=== PATIENT | male | born 1995 | race Caucasian/White ===

== ENCOUNTER 2017-03-12 22:43 | Emergency (ER) | payer OTHER ==
--- NOTE | 2017-03-12 22:55 | EDM.PDOC ---
ED HPI GENERAL MEDICAL PROBLEM - General Stated Complaint: SWOLLEN LT FACE Time Seen by Provider: 03/12/17 22:43 Source of Information: Reports: Patient, Family History Limitations: Reports: No Limitations - History of Present Illness INITIAL COMMENTS - FREE TEXT/NARRATIVE: 21 y.o.w.m came to the ed due to swelling of his left cheek for a few days with pain. Pt denied trauma, he took some motrin/tylenol without help. No F/C N/V or any other medical issues. Onset: Today Onset Date: 03/11/17 Onset Time: 08:00 Duration: Day(s):, Getting Worse Location: Reports: Face Quality: Reports: Ache, Dull, Pressure Severity: Mild Improves with: Reports: Rest Worsens with: Reports: Movement Context: Reports: Other (tooth pain/abscess) Associated Symptoms: Reports: No Other Symptoms - Related Data Allergies Allergy/AdvReac Type Severity Reaction Status Date / Time No Known Allergies Allergy Verified 03/12/17 23:13 Home Meds: Home Meds Amoxicillin/Potassium Clav [Augmentin 875-125 Tablet] 1 each PO BID #20 tablet 03/12/17 [Rx] ED ROS ENT - Review of Systems Review Of Systems: See Below Constitutional: Reports: No Symptoms HEENT: Reports: Other (swelling left cheek. ) Respiratory: Reports: No Symptoms Cardiovascular: Reports: No Symptoms Endocrine: Reports: No Symptoms GI/Abdominal: Reports: No Symptoms : Reports: No Symptoms Musculoskeletal: Reports: No Symptoms Skin: Reports: No Symptoms Neurological: Reports: No Symptoms Psychiatric: Reports: No Symptoms Hematologic/Lymphatic: Reports: No Symptoms Immunologic: Reports: No Symptoms ED EXAM, ENT - Physical Exam Exam: See Below Exam Limited By: No Limitations General Appearance: Alert, WD/WN, Mild Distress Eye Exam: Bilateral Eye: Normal Inspection Ears: Normal External Exam Nose: Normal Inspection Mouth/Throat: Dental Pain Head: Facial Swelling (left jaw swelling) Neck: Normal Inspection Respiratory/Chest: No Respiratory Distress Cardiovascular: Normal Peripheral Pulses, Regular Rate, Rhythm GI/Abdominal: Normal Bowel Sounds, Soft, Non-Tender (Male) Exam: Deferred Rectal (Males) Exam: Deferred Back: Normal Inspection Extremities: Normal Inspection Neurological: Alert, Oriented, Normal Cognition, Normal Gait Psychiatric: Normal Affect, Normal Mood Skin: Warm, Dry, Intact Lymphatic: No Adenopathy Course - Vital Signs Text/Narrative:: 21 y.o.w.m came to the ed due to swelling of his left cheek for a few days with pain. Pt denied trauma, he took some motrin/tylenol without help. No F/C N/V or any other medical issues. PE: left jaw swelling at left 3rd molar Impression: Tooths abscess Tx: Augmentin, Vicodin to go Plan: D/C with instructions Last Recorded V/S: Last Vital Signs Temp 37.2 C 03/12/17 22:55 Pulse 79 03/12/17 22:55 Resp 14 03/12/17 22:55 BP 153/86 H 03/12/17 22:55 Pulse Ox 99 03/12/17 22:55 - Orders/Labs/Meds Meds: Medications Discontinued Medications Generic Name Dose Route Start Last Admin Trade Name Elis PRN Reason Stop Dose Admin Amoxicillin/Clavulanate Potassium 1 tab 03/12/17 22:57 03/12/17 23:07 Augmentin 875 Mg/125 Mg PO 03/12/17 22:58 1 tab ONETIME ONE Administration Departure - Departure Time of Disposition: 22:58 Disposition: Home, Self-Care 01 Condition: Good Clinical Impression: Tooth abscess - Discharge Information Prescriptions: Amoxicillin/Potassium Clav [Augmentin 875-125 Tablet] 1 each PO BID #20 tablet Referrals: PCP,None [Primary Care Provider] - Forms: ED Department Discharge Additional Instructions: Please take the Abx and motrin/Vicodin for pain, please f/u with a dentist as soon as possible. Please come back to the ed if your symptoms get worse acutely
[2017-03-12] MEDS ORDERED: Amoxicillin/Clavulanate K 875-125 MG Tab PO ONE (22:57)
[2017-03-12] MEDS ORDERED: Acetaminophen/HYDROcodone 325-5 MG Tab PO ONE (22:59)
== END 2017-03-12 23:13 | disposition home or self-care (01) ==
LOC: FB.ED 22:43
DX: K04.7 Periapical abscess without sinus (principal)
CPT/HCPCS: 99282; A9270